=== PATIENT | male | born 1975 | race African-American/Black ===

== ENCOUNTER 2020-09-18 11:32 | Emergency (ER) | payer MEDICARE, MEDICAID ==
[~2020-09-18] VITALS: Ht 180 cm; Wt 99.7 kg
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
[2020-09-18 12:45] LABS: BASOPHILS % (AUTO) 1 % (0-10); EOSINOPHILS # (AUTO) 0.2 10^3/uL (0.0-0.3); EOSINOPHILS % (AUTO) 2 % (0-10); HEMATOCRIT 45 % (40-54); LYMPHOCYTES # (AUTO) 2.5 10^3/uL (1.0-4.0); LYMPHOCYTES % (AUTO) 31 % (12-44); MEAN CORPUSCULAR HEMOGLOBIN 32 pg (25-34); MEAN CORPUSCULAR HGB CONC 34 g/dL (32-36); MEAN CORPUSCULAR VOLUME 95 fL (80-99); MEAN PLATELET VOLUME 9.1 fL (9.0-12.2); MONOCYTES # (AUTO) 0.7 10^3/uL (0.0-1.0); MONOCYTES % (AUTO) 9 % (0-12); NEUTROPHILS # (AUTO) 4.6 10^3/uL (1.8-7.8); NEUTROPHILS % (AUTO) 57 % (42-75); PLATELET COUNT 245 10^3/uL (130-400)
[2020-09-18] MEDS ORDERED: LIDOCAINE 1% INJ 20 ML 20 ML VIAL INJ ONE (12:45)
[2020-09-18] MEDS ORDERED: TETANUS,DIPTH,PERTUSS P/F (BOOSTRIX) 0.5 ML VIAL IM ONE (12:45)
[2020-09-18 12:56] LABS: PROTHROMBIN TIME PATIENT 13.3 SEC (12.2-14.7)
[2020-09-18 12:57] LABS: ALBUMIN 4.2 GM/DL (3.2-4.5); CHLORIDE 105 MMOL/L (98-107); SODIUM 140 MMOL/L (135-145)
[2020-09-18 12:58] LABS: CALCIUM 8.9 MG/DL (8.5-10.1)
[2020-09-18 12:59] LABS: GLUCOSE 81 MG/DL (70-105)
[2020-09-18 13:00] LABS: CARBON DIOXIDE 25 MMOL/L (21-32); TOTAL PROTEIN 7.2 GM/DL (6.4-8.2)
[2020-09-18 13:01] LABS: BILIRUBIN,TOTAL 0.4 MG/DL (0.1-1.0)
[2020-09-18 13:03] LABS: ALKALINE PHOSPHATASE 60 U/L (40-136); CREATININE SERUM 1.16 MG/DL (0.60-1.30); GFR ESTIMATED > 60
[2020-09-18 13:04] LABS: BUN/CREATININE RATIO 9
--- NOTE | 2020-09-18 13:04 | Diagnostic Imaging Report ---
PROCEDURE: CT head and CT cervical spine without contrast. TECHNIQUE: Multiple contiguous axial images were obtained through the brain and cervical spine without the use of intravenous contrast. Sagittal and coronal reformations through the cervical spine were then performed. Auto Exposure Controls were utilized during the CT exam to meet ALARA standards for radiation dose reduction. INDICATION: Head laceration, neck pain. There are no prior studies available for comparison. CT HEAD: Reportedly the patient has suffered a scalp laceration. There is evidence of a laceration along the anterior aspect of the left frontoparietal bone near the vertex of the skull. There is a small amount of radiopaque debris in this area as well. There is no sign of a skull fracture. There is no intracranial mass, shift of the midline or hemorrhage. The ventricles are not abnormally dilated. The left globe is unremarkable. 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 However the prostate components seem malaligned. There is mucosal thickening in the ethmoid sinuses and the left frontal sinus. The sinuses are otherwise generally clear. IMPRESSION: 1. There is no evidence for an acute intracranial abnormality. If clinical concern regarding an underlying abnormality persists, then MRI would be recommended for further study. 2. There is a soft tissue laceration to the scalp along the anterior aspect of the left frontoparietal bone near the vertex of the skull. There is a small amount of radiopaque debris in this area as well. 3. The ocular prosthesis on the right appears to be malaligned. Clinical follow-up is recommended. CT CERVICAL SPINE: The reconstructed parasagittal images show the vertebral body heights and alignment to be generally within normal limits. The intervertebral disc spaces are fairly well-maintained. There is no high-grade central stenosis identified. There is no fracture or acute bony abnormality appreciated. There is no sign of a paraspinal mass. The thyroid gland was not well visualized. The lung apices are clear. IMPRESSION: 1. There is no acute bony abnormality of the cervical spine. Dictated by: Dictated on workstation # [id number]
[2020-09-18 13:06] LABS: ALANINE AMINOTRANSFERASE 18 U/L (0-55); LIPASE 110 U/L (8-78)
[2020-09-18] MEDS ORDERED: CEPH500T PO ×2 (13:40→13:48)
[2020-09-18] MEDS ORDERED: IBUPROFEN 800 MG (MOTRIN) TAB PO ONE (13:45)
[2020-09-18] MEDS ORDERED: METH-732 PO ×2 (13:47→13:48)
[2020-09-18 13:55] VITALS: BP 105/75
== END 2020-09-18 13:57 | disposition home or self-care (01) ==
LOC: ER 11:36
DX: S06.0X0A Concussion without loss of consciousness, initial encounter (principal); S01.01XA Laceration without foreign body of scalp, initial encounter; R40.2410 Glasgow coma scale score 13-15, unspecified time; F17.210 Nicotine dependence, cigarettes, uncomplicated; Z23 Encounter for immunization; W22.8XXA Striking against or struck by other objects, initial encounter
CPT/HCPCS: 12002; 70450; 72125; 80053; 83690; 85025; 85610; 99284; G0480; 36415; 80320; 90715

== ENCOUNTER 2020-09-29 10:52 | Emergency (ER) | payer MEDICARE, MEDICAID ==
[~2020-09-29] VITALS: Ht 180.3 cm; Wt 93.9 kg
[~2020-09-29 10:52] MED LIST: CEPH500T PO; METH-732 PO
[2020-09-29 11:16] VITALS: BP_SYST 78
== END 2020-09-29 11:27 | disposition home or self-care (01) ==
LOC: EDUNIT# 10:52 → ER 10:56
DX: S01.81XD Laceration without foreign body of other part of head, subsequent encounter (principal); X58.XXXD Exposure to other specified factors, subsequent encounter
CPT/HCPCS: 99281

== ENCOUNTER 2021-04-16 16:15 | Emergency (ER) | payer MEDICARE, MEDICAID ==
[~2021-04-16] VITALS: Ht 180.3 cm; Wt 102.1 kg
[2021-04-16 16:28] VITALS: BP 147/90
[2021-04-16] MEDS ORDERED: CLIN-144 PO (16:44)
[2021-04-16] MEDS ORDERED: ACHD5005 PO (16:44)
--- NOTE | 2021-04-16 16:44 | ED EENT ---
History of Present Illness General Chief Complaint: Dental Problems/Pain Stated Complaint: DENTAL PAIN Source: patient, family Exam Limitations: other (Deafness) History of Present Illness Date Seen by Provider: Apr 16, 2021 Time Seen by Provider: 16:39 Initial Comments Patient is a 46-year-old male with a history of deafness and left eye blindness who presents the ED for left lower dental pain for the past 3 days. Reports pain with eating. Reports swelling to the left side of his face. Pain radiates to the left ear around his left eye. Patient is deaf but is able to lip read. Mother on the phone who lives in [place]. Was able to communicate through her by the way of the patient. Has been taken Tylenol extra strength at home without much improvement. Denies of any headache, vomiting, cough, runny nose, chest pain, neck swelling. Denies of any purulent drainage from his mouth. Sore throat. Tolerating his secretions. Allergies and Home Medications Allergies Coded Allergies: No Known Drug Allergies (Unverified , 09/18/20) Patient Home Medication List Home Medication List Reviewed: Yes Cephalexin (Cephalexin) 500 Mg Tablet, 500 MG PO TID Prescribed by: LUDIN ALEXANDRA on 09/18/20 1348 Clindamycin HCl (Clindamycin HCl) 300 Mg Capsule, 300 MG PO QID Prescribed by: PATRICIO IGLESIAS on 04/16/21 1644 Hydrocodone/Acetaminophen (Hydrocodone-Acetamin 5-325 mg) 1 Each Tablet, 1 TAB PO Q4H PRN for PAIN-MODERATE (5-7) Prescribed by: PATRICIO IGLESIAS on 04/16/21 1644 Methocarbamol (Methocarbamol) 750 Mg Tablet, 750 MG PO Q6-8HR Prescribed by: LUDIN ALEXANDRA on 09/18/20 1348 Review of Systems Review of Systems Constitutional: No chills, No dizziness, No fever, No malaise, No weakness Eyes: Denies Blindness, Denies Decreased Acuity, Denies Pain, Denies Photophobia Ears: Denies Dizziness Nose: denies congestion, denies bloody discharge, denies purulent discharge Mouth: pain Throat: denies pain, denies swelling, denies neck stiffness, denies hoarse, denies painful swallowing Respiratory: No cough Cardiovascular: No chest pain Gastrointestinal: No abdominal pain, No diarrhea, No nausea, No vomiting Musculoskeletal: No back pain, No joint pain Skin: No change in color, No change in hair/nails Physical Exam Vital Signs Vital Signs - First Documented 04/16/21 16:28 Temp 37.1 Pulse 76 Resp 16 B/P (MAP) 147/90 (109) Pulse Ox 96 O2 Delivery Room Air Height, Weight, BMI Height: '" Weight: lbs. oz. kg; 30.00 BMI Method:Actual General Appearance: WD/WN, no apparent distress Eyes: right eye normal inspection, right eye EOMI; bilateral eye PERRL Ears: bilateral ear auricle normal, bilateral ear canal normal, bilateral ear TM normal Nose: normal inspection, active bleeding Mouth/Throat: other (Left lower molar tenderness with gum swelling erythema. No palpable abscess.) Neck: non-tender, full range of motion, supple, normal inspection, other (Left- sided facial tenderness left jaw. Minimal swelling without erythema. Left parotid tenderness.) Cardiovascular: regular rate, rhythm, no edema, no gallop, no JVD Respiratory: chest non-tender, lungs clear, normal breath sounds, no respiratory distress Gastrointestinal: normal bowel sounds, non tender, soft Neurologic/Psychiatric: telephone cleaner II-XII nml as tested, no motor/sensory deficits, alert, normal mood/affect Procedures/Interventions Suture Size: 5-0 Progress/Results/Core Measures Results/Orders Vital Signs/I&O 04/16/21 16:28 Temp 37.1 Pulse 76 Resp 16 B/P (MAP) 147/90 (109) Pulse Ox 96 O2 Delivery Room Air Departure Communication (PCP) Patient presents ED with left lower dental pain for the past 2 or 3 days. Pain radiates to left ear, left side of face. He reports facial swelling. Does have tenderness to the left lower molar. Decay noted with gum swelling or redness. No anterior neck tenderness. No purulent drainage from the floor of the mouth. Does have some parotid tenderness, left-sided facial tenderness. No erythematous injection. Left TM clear. No headache, dizziness, vomiting, diarrhea, cough, runny nose. Pain with eating. Discussed with patient pain appears to be stemming from his left lower tooth. Does have some parotid tenderness. He states it hurts when he eats in his left lower jaw. Limited exam secondary to his deafness but was able to communicate with his mom who translated. We will try clindamycin and pain medication. Recommend following up with a dentist which mom will schedule appointment who he sees here in [place]. Provided options for dental block patient refused. If worsening facial swelling, redness will need to return back to ED for imaging. Will try antibiotics at this time. If MADDIE from the parotid will treat as infectious related. Does not appear toxic or septic. Vital signs stable Impression Primary Impression: Toothache Disposition: HOME, SELF-CARE Condition: Stable Departure-Patient Inst. Decision time for Depature: 16:43 Referrals: JAYDEN SOTO (PCP/Family) Primary Care Physician Patient Instructions: Dental Pain ED Scripts Hydrocodone/Acetaminophen (Hydrocodone-Acetamin 5-325 mg) 1 Each Tablet 1 TAB PO Q4H PRN for PAIN-MODERATE (5-7), #8 TAB Prov: LUIS EDUARDO ARROYO 04/16/21 Clindamycin HCl (Clindamycin HCl) 300 Mg Capsule 300 MG PO QID for 7 Days, #28 CAP Prov: LUIS EDUARDO ARROYO 04/16/21 LUIS EDUARDO ARROYO Apr 16, 2021 16:44
== END 2021-04-16 16:53 | disposition home or self-care (01) ==
LOC: EDUNIT# 16:15 → ER 16:19
DX: K08.89 Other specified disorders of teeth and supporting structures (principal); H91.90 Unspecified hearing loss, unspecified ear; H54.40 Blindness, one eye, unspecified eye
CPT/HCPCS: 99282

== ENCOUNTER 2021-05-07 17:53 | Emergency (ER) | payer MEDICARE, MEDICAID ==
[~2021-05-07] VITALS: Ht 108.3 cm; Wt 97.1 kg
[~2021-05-07 17:53] MED LIST changes: +ACHD5005 PO; +CLIN-144 PO
--- NOTE | 2021-05-07 18:14 | ED EENT ---
History of Present Illness General Stated Complaint: ABCESS TOOTH,MADRID Source: patient Exam Limitations: no limitations History of Present Illness Date Seen by Provider: May 07, 2021 Time Seen by Provider: 18:11 Initial Comments 46-year-old deaf male presents to ER with reports of left-sided facial pain and swelling. Is been off and on for the past month. On 04/16/2021 was given a prescription for clindamycin and hydrocodone which did temporarily improve his pain. However, over the past few days the pain and swelling has recurred. He has had some chills at home. Does not have a dentist. Timing/Duration: abrupt Severity: moderate Location: facial, dental Prearrival Treatment: no prearrival treatment Associated Symptoms: denies symptoms Allergies and Home Medications Allergies Coded Allergies: No Known Drug Allergies (Unverified , 09/18/20) Patient Home Medication List Home Medication List Reviewed: Yes Amoxicillin (Amoxicillin) 500 Mg Capsule, 500 MG PO TID Prescribed by: LUDIN ALEXANDRA on 05/07/21 185 Cephalexin (Cephalexin) 500 Mg Tablet, 500 MG PO TID Prescribed by: LUDIN ALEXANDRA on 09/18/20 1348 Clindamycin HCl (Clindamycin HCl) 300 Mg Capsule, 300 MG PO QID Prescribed by: PATRICIO IGLESIAS on 04/16/21 1644 Hydrocodone/Acetaminophen (Hydrocodone-Acetamin 5-325 mg) 1 Each Tablet, 1 TAB PO Q4H PRN for PAIN-MODERATE (5-7) Prescribed by: PATRICIO IGLESIAS on 04/16/21 1644 Hydrocodone/Acetaminophen (Hydrocodone-Acetamin 5-325 mg) 1 Each Tablet, 1 TAB PO Q4H PRN for PAIN-MODERATE (5-7) Prescribed by: LUDIN ALEXANDRA on 05/07/21 1855 Methocarbamol (Methocarbamol) 750 Mg Tablet, 750 MG PO Q6-8HR Prescribed by: LUDIN ALEXANDRA on 09/18/20 1348 Naproxen (Naprosyn) 500 Mg Tablet, 500 MG PO BID PRN for PAIN-MODERATE (5-7) Prescribed by: LUDIN ALEXANDRA on 05/07/21 185 Review of Systems Review of Systems Constitutional: see HPI Eyes: No Symptoms Reported Ears: No Symptoms Reported Nose: no symptoms reported Mouth: see HPI Throat: no symptoms reported Respiratory: no symptoms reported Cardiovascular: no symptoms reported Musculoskeletal: no symptoms reported Skin: no symptoms reported Physical Exam Vital Signs Vital Signs - First Documented 05/07/21 18:05 Temp 36.9 Pulse 76 Resp 18 B/P (MAP) 130/85 (100) Pulse Ox 98 O2 Delivery Room Air Height, Weight, BMI Height: '" Weight: lbs. oz. kg; 31.00 BMI Method:Actual General Appearance: WD/WN, no apparent distress Eyes: bilateral eye normal inspection, bilateral eye PERRL, bilateral eye EOMI Ears: bilateral ear auricle normal, bilateral ear canal normal, bilateral ear TM normal Mouth/Throat: mandibular swelling, maxillary swelling, other (There are a couple of carious teeth on the left upper and lower. No palpable fluctuant abscess. There is a tender left submandibular lymph node.) Neck: full range of motion, lymphadenopathy (L) Respiratory: no respiratory distress, no accessory muscle use Gastrointestinal: normal bowel sounds, non tender, soft Neurologic/Psychiatric: alert, normal mood/affect, oriented x 3 Skin: normal color, warm/dry Procedures/Interventions Suture Size: 5-0 Progress/Results/Core Measures Results/Orders Lab Results Laboratory Tests Test 05/07/21 18:20 05/07/21 18:46 Range/Units Sodium Level 140 135-145 MMOL/L Potassium Level 3.8 3.6-5.0 MMOL/L Chloride Level 108 H 98-107 MMOL/L Carbon Dioxide Level 20 L 21-32 MMOL/L Anion Gap 12 5-14 MMOL/L Blood Urea Nitrogen 9 7-18 MG/DL Creatinine 1.11 0.60-1.30 MG/DL Estimat Glomerular Filtration Rate 82 BUN/Creatinine Ratio 8 Glucose Level 80 70-105 MG/DL Calcium Level 8.9 8.5-10.1 MG/DL Corrected Calcium 8.7 8.5-10.1 MG/DL Total Bilirubin 0.4 0.1-1.0 MG/DL Aspartate Amino Transf (AST/SGOT) 18 5-34 U/L Alanine Aminotransferase (ALT/SGPT) 13 0-55 U/L Alkaline Phosphatase 50 40-136 U/L C-Reactive Protein High Sensitivity 0.19 0.00-0.50 MG/DL Total Protein 7.3 6.4-8.2 GM/DL Albumin 4.2 3.2-4.5 GM/DL White Blood Count 6.2 4.3-11.0 10^3/uL Red Blood Count 4.26 L 4.30-5.52 10^6/uL Hemoglobin 13.4 13.3-17.7 g/dL Hematocrit 40 40-54 % Mean Corpuscular Volume 93 80-99 fL Mean Corpuscular Hemoglobin 32 25-34 pg Mean Corpuscular Hemoglobin Concent 34 32-36 g/dL Red Cell Distribution Width 15.2 H 10.0-14.5 % Platelet Count 272 130-400 10^3/uL Mean Platelet Volume 8.9 L 9.0-12.2 fL Immature Granulocyte % (Auto) 0 % Neutrophils (%) (Auto) 44 42-75 % Lymphocytes (%) (Auto) 44 12-44 % Monocytes (%) (Auto) 8 0-12 % Eosinophils (%) (Auto) 3 0-10 % Basophils (%) (Auto) 1 0-10 % Neutrophils # (Auto) 2.7 1.8-7.8 10^3/uL Lymphocytes # (Auto) 2.7 1.0-4.0 10^3/uL Monocytes # (Auto) 0.5 0.0-1.0 10^3/uL Eosinophils # (Auto) 0.2 0.0-0.3 10^3/uL Basophils # (Auto) 0.1 0.0-0.1 10^3/uL Immature Granulocyte # (Auto) 0.0 0.0-0.1 10^3/uL My Orders Orders - LUDIN ALEXANDRA [employer]ATH[employer] CUTTER Cbc With Automated Diff (05/07/21 18:09) Comprehensive Metabolic Panel (05/07/21 18:09) Ed Iv/Invasive Line Start (05/07/21 18:09) Hs C Reactive Protein (05/07/21 18:09) Ct Maxillofacial W (05/07/21 18:09) Ketorolac Injection (Toradol Injection) (05/07/21 18:15) Fentanyl Inj (Sublimaze Injection) (05/07/21 18:15) Rx-Oxycodone/Apap 5-325 Mg (Rx-Percocet (05/07/21 18:15) Ceftriaxone 1 Gm Pre-Mix (Rocephin 1 Gm (05/07/21 18:15) Iohexol Injection (Omnipaque 350 Mg/Ml 1 (05/07/21 18:30) Received Contrast (Hold Metformin- Contr (05/07/21 18:30) Ns (Ivpb) (Sodium Chloride 0.9% Ivpb Bag (05/07/21 18:30) Medications Given in ED Current Medications Medications Dose Ordered Sig/Jenniffer Route Start Time Stop Time Status Last Admin Dose Admin Iohexol 75 ml ONCE ONCE IV 05/07/21 18:30 05/07/21 18:31 DC 05/07/21 18:44 75 ML Sodium Chloride 100 ml ONCE ONCE IV 05/07/21 18:30 05/07/21 18:31 DC 05/07/21 18:44 80 ML Vital Signs/I&O 05/07/21 18:05 Temp 36.9 Pulse 76 Resp 18 B/P (MAP) 130/85 (100) Pulse Ox 98 O2 Delivery Room Air Departure Communication (Admissions) NAME: PRINCESS WELCHTAYLER Lamar [facility] REC#: [id number] PT STATUS: REG ER : 1975 PHYSICIAN: LUDIN ALEXANDRA UPP[employer] LEATHER CUTTER ADMIT DATE: 05/07/21/ER Draft Date of Exam:05/07/21 CT MAXILLOFACIAL W PROCEDURE: CT maxillofacial with contrast. TECHNIQUE: After intravenous administration of contrast, axial images were obtained through the face and reformatted into coronal and sagittal planes. Auto Exposure Controls were utilized during the CT exam to meet ALARA standards for radiation dose reduction. INDICATION: Left facial pain and swelling. FINDINGS: The visualized intracranial contents demonstrate no mass effect or abnormal intracranial enhancement. The mastoid air cells and the middle ears are clear. There is moderate mucosal thickening throughout the ethmoids within the left maxillary sinus. There is no air-fluid level. Left-sided orbital contents unremarkable. 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 There are no CT findings of an acute facial fracture. Note is made of a dental caries within the left 3rd maxillary molar. The 1st mandibular molar is absent. On the right, the 1st mandibular molar is also absent. There is no aggressive bone resorption. The posterior nasopharynx and oropharynx appear appropriately symmetric. There is no displacement of the parapharyngeal fat planes. The base the tongue is unremarkable. There is no peritonsillar abscess or abnormal process within the prevertebral or retropharyngeal space. The parotid and submandibular glands are normal in size. There is no ductal dilatation or adjacent fat stranding. There is no sialolith. No significant soft tissue swelling or focal fluid collection or abscess is evident. There are no pathologically enlarged cervical lymph nodes evident. The visual portion of the cervical spine demonstrates normal alignment. IMPRESSION: 1. No CT findings of a fluid collection or facial abscess. 2. The visualized portion of the aerodigestive tract is appropriately symmetric. 3. Paranasal sinus disease. 4. Left 3rd maxillary molar dental caries. No periapical lucency or bone resorption evident. 5. No focal inflammatory fat stranding about the salivary glands. 6. No adenopathy. Dictated on workstation # [id number] Dict: 05/07/[id number] Trans: 05/07/211854 PJE [id number] Interpreted by: JUSTA FLEMING MD Electronically signed by: Impression Primary Impression: Dental caries Disposition: 01 HOME, SELF-CARE Condition: Stable Departure-Patient Inst. Decision time for Depature: 18:52 Ref[place]: [facility] [place] Primary Care Physician JAYDEN SOTO (Family) Primary Care Physician Patient Instructions: Tooth Abscess (DC) Add. Discharge Instructions: 1. Take the antibiotics and the pain medication as directed. Return to ER for any concerns. Call one of the dentists listed below Sunday morning to make an appointment. -[facility] [address] [place] [address] [address] [phone] Scripts Amoxicillin (Amoxicillin) 500 Mg Capsule 500 MG PO TID, #21 CAP 0 Refills Prov: LUDIN ALEXANDRA APRN 05/07/21 Naproxen (Naprosyn) 500 Mg Tablet 500 MG PO BID PRN for PAIN-MODERATE (5-7), #30 TAB 0 Refills Prov: LUDIN ALEXANDRA APRN 05/07/21 Hydrocodone/Acetaminophen (Hydrocodone-Acetamin 5-325 mg) 1 Each Tablet 1 TAB PO Q4H PRN for PAIN-MODERATE (5-7), #14 TAB Prov: LUDIN ALEXANDRA APRN 05/07/21 LUDIN ALEXANDRA APRN May 07, 2021 18:14
[2021-05-07] MEDS ORDERED: fentaNYL INJ 100 MCG/2 ML AMP IVP ONE (18:15)
[2021-05-07] MEDS ORDERED: cefTRIAXone 1 GM PRE-MIX 50 ML IV ONE (18:15)
[2021-05-07] MEDS ORDERED: KETOROLAC 30 MG/ML VIAL IVP ONE (18:15)
[2021-05-07] MEDS ORDERED: RX-OXYCODONE/APAP 5-325 MG #4 TAB PK PO PRN (18:15)
[2021-05-07] MEDS ORDERED: HOLD METFORMIN - RECEIVED CONTRAST 20 ML VIAL IV SCH (18:30)
[2021-05-07] MEDS ORDERED: IOHEXOL 350 MG/ML 100 ML (OMNIPAQUE 350) VIAL IV ONE (18:30)
[2021-05-07] MEDS ORDERED: NS 100 ML (IVPB) BAG IV ONE (18:30)
[2021-05-07 18:40] LABS: ALBUMIN 4.2 GM/DL (3.2-4.5); POTASSIUM 3.8 MMOL/L (3.6-5.0)
[2021-05-07 18:41] LABS: CALCIUM 8.9 MG/DL (8.5-10.1)
[2021-05-07 18:43] LABS: TOTAL PROTEIN 7.3 GM/DL (6.4-8.2)
[2021-05-07 18:44] LABS: BILIRUBIN,TOTAL 0.4 MG/DL (0.1-1.0)
[2021-05-07 18:46] LABS: CREATININE SERUM 1.11 MG/DL (0.60-1.30)
[2021-05-07 18:51] LABS: BASOPHILS # (AUTO) 0.1 10^3/uL (0.0-0.1); BASOPHILS % (AUTO) 1 % (0-10); EOSINOPHILS # (AUTO) 0.2 10^3/uL (0.0-0.3); EOSINOPHILS % (AUTO) 3 % (0-10); HEMATOCRIT 40 % (40-54); HEMOGLOBIN 13.4 g/dL (13.3-17.7); LYMPHOCYTES # (AUTO) 2.7 10^3/uL (1.0-4.0); LYMPHOCYTES % (AUTO) 44 % (12-44); MEAN CORPUSCULAR HEMOGLOBIN 32 pg (25-34); MEAN CORPUSCULAR HGB CONC 34 g/dL (32-36); MEAN CORPUSCULAR VOLUME 93 fL (80-99); MEAN PLATELET VOLUME 8.9 fL (9.0-12.2); MONOCYTES # (AUTO) 0.5 10^3/uL (0.0-1.0); MONOCYTES % (AUTO) 8 % (0-12); NEUTROPHILS # (AUTO) 2.7 10^3/uL (1.8-7.8); NEUTROPHILS % (AUTO) 44 % (42-75); PLATELET COUNT 272 10^3/uL (130-400); WHITE BLOOD COUNT 6.2 10^3/uL (4.3-11.0)
[2021-05-07] MEDS ORDERED: NAPR-1071 PO (18:54)
[2021-05-07] MEDS ORDERED: ACHD5005 PO (18:54)
[2021-05-07] MEDS ORDERED: AMOX500C2 PO (18:54)
--- NOTE | 2021-05-07 18:56 | Diagnostic Imaging Report ---
PROCEDURE: CT maxillofacial with contrast. TECHNIQUE: After intravenous administration of contrast, axial images were obtained through the face and reformatted into coronal and sagittal planes. Auto Exposure Controls were utilized during the CT exam to meet ALARA standards for radiation dose reduction. INDICATION: Left facial pain and swelling. FINDINGS: The visualized intracranial contents demonstrate no mass effect or abnormal intracranial enhancement. The mastoid air cells and the middle ears are clear. There is moderate mucosal thickening throughout the ethmoids within the left maxillary sinus. There is no air-fluid level. Left-sided orbital contents unremarkable. 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 There are no CT findings of an acute facial fracture. Note is made of a dental caries within the left 3rd maxillary molar. The 1st mandibular molar is absent. On the right, the 1st mandibular molar is also absent. There is no aggressive bone resorption. The posterior nasopharynx and oropharynx appear appropriately symmetric. There is no displacement of the parapharyngeal fat planes. The base the tongue is unremarkable. There is no peritonsillar abscess or abnormal process within the prevertebral or retropharyngeal space. The parotid and submandibular glands are normal in size. There is no ductal dilatation or adjacent fat stranding. There is no sialolith. No significant soft tissue swelling or focal fluid collection or abscess is evident. There are no pathologically enlarged cervical lymph nodes evident. The visual portion of the cervical spine demonstrates normal alignment. IMPRESSION: 1. No CT findings of a fluid collection or facial abscess. 2. The visualized portion of the aerodigestive tract is appropriately symmetric. 3. Paranasal sinus disease. 4. Left 3rd maxillary molar dental caries. No periapical lucency or bone resorption evident. 5. No focal inflammatory fat stranding about the salivary glands. 6. No adenopathy. Dictated by: Dictated on workstation # [id number]
[2021-05-07 19:28] VITALS: BP 124/89
== END 2021-05-07 19:28 | disposition home or self-care (01) ==
LOC: EDUNIT# 17:53 → ER 17:55
DX: K02.9 Dental caries, unspecified (principal)
CPT/HCPCS: 36415; 70487; 80053; 85025; 86141

== ENCOUNTER 2021-10-23 15:08 | Emergency (ER) | payer MEDICARE, MEDICAID ==
[~2021-10-23] VITALS: Ht 180 cm; Wt 95.2 kg
[~2021-10-23 15:08] MED LIST changes: +AMOX500C2 PO; +NAPR-1071 PO
[2021-10-23] MEDS ORDERED: fentaNYL INJ 100 MCG/2 ML AMP IVP ONE (15:45)
[2021-10-23] MEDS ORDERED: PANTOPRAZOLE 40 MG (PROTONIX) VIAL IV ONE (15:45)
[2021-10-23] MEDS ORDERED: ONDANSETRON 4 MG/2 ML (SDV) Z0FRAN IVP ONE (15:45)
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
[2021-10-23 16:08] LABS: ALBUMIN 4.1 GM/DL (3.2-4.5)
[2021-10-23 16:10] LABS: CALCIUM 8.5 MG/DL (8.5-10.1)
[2021-10-23 16:11] LABS: TOTAL PROTEIN 6.5 GM/DL (6.4-8.2)
[2021-10-23 16:13] LABS: BILIRUBIN,TOTAL 0.4 MG/DL (0.1-1.0)
[2021-10-23 16:15] LABS: CREATININE SERUM 1.05 MG/DL (0.60-1.30)
[2021-10-23 16:19] LABS: BASOPHILS # (AUTO) 0.1 10^3/uL (0.0-0.1); BASOPHILS % (AUTO) 1 % (0-10); EOSINOPHILS # (AUTO) 0.2 10^3/uL (0.0-0.3); EOSINOPHILS % (AUTO) 3 % (0-10); HEMATOCRIT 41 % (40-54); HEMOGLOBIN 13.9 g/dL (13.3-17.7); LYMPHOCYTES # (AUTO) 2.8 10^3/uL (1.0-4.0); LYMPHOCYTES % (AUTO) 50 % (12-44); MEAN CORPUSCULAR HEMOGLOBIN 32 pg (25-34); MEAN CORPUSCULAR HGB CONC 34 g/dL (32-36); MEAN CORPUSCULAR VOLUME 93 fL (80-99); MEAN PLATELET VOLUME 8.9 fL (9.0-12.2); MONOCYTES # (AUTO) 0.4 10^3/uL (0.0-1.0); MONOCYTES % (AUTO) 8 % (0-12); NEUTROPHILS # (AUTO) 2.2 10^3/uL (1.8-7.8); NEUTROPHILS % (AUTO) 38 % (42-75); PLATELET COUNT 243 10^3/uL (130-400); WHITE BLOOD COUNT 5.7 10^3/uL (4.3-11.0)
[2021-10-23] MEDS ORDERED: ONDA4TAB11 PO (16:51)
[2021-10-23 17:08] VITALS: BP 115/80
== END 2021-10-23 17:08 | disposition home or self-care (01) ==
LOC: EDUNIT# 15:08 → ER 15:09
DX: K92.2 Gastrointestinal hemorrhage, unspecified (principal); E03.9 Hypothyroidism, unspecified; F17.290 Nicotine dependence, other tobacco product, uncomplicated; Z79.890 Hormone replacement therapy
CPT/HCPCS: 36415; 80053; 82274; 85025